=== PATIENT | female | born 1980 | race Caucasian/White ===

== ENCOUNTER 2020-05-13 20:38 | Emergency (ER) | payer SELFPAY ==
[2020-05-13 20:43] VITALS: BP 125/88
[2020-05-13] MEDS ORDERED: IBUPROFEN 800 MG TABLET PO ONE (21:28)
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
== END 2020-05-13 21:37 | disposition home or self-care (01) ==
LOC: ER 20:38
DX: S46.811A Strain of other muscles, fascia and tendons at shoulder and upper arm level, right arm, initial encounter (principal); M54.2 Cervicalgia; M54.6 Pain in thoracic spine; V89.2XXA Person injured in unspecified motor-vehicle accident, traffic, initial encounter
CPT/HCPCS: 99283